=== PATIENT | male | born 1950 | race Caucasian/White ===

== ENCOUNTER → 2023-06-17 13:39 | Outpatient (REF) | payer MEDICARE, SELFPAY | LOC: HWRAD 13:39 | PROVIDERS: ATTENDING PHYSICIAN Internal Medicine | DX: I48.0 Paroxysmal atrial fibrillation (principal); I65.23 Occlusion and stenosis of bilateral carotid arteries | CPT/HCPCS: 93880 ==

== ENCOUNTER 2023-06-21 04:09 | Inpatient (IN) | payer MEDICARE, SELFPAY ==
[2023-06-20 20:07] VITALS: BP 170/106
[2023-06-20 20:26] LABS: % Basophils 0.9 % (0-2); % Eosinophils 1.6 % (0-6); % Immature Granulocytes 0.3 % (0-0.5); % Lymphocytes 39.8 % (20.5-51.1); % Monocytes 11.3 % (1.7-9.3); % Neutrophils 46.1 % (42.2-75.2); Absolute Basophils 0.1 10^3/uL (0-0.2); Absolute Eosinophils 0.1 10^3/uL (0-0.7); Absolute Lymphocytes 3.1 10^3/uL (1.2-3.4); Absolute Monocytes 0.9 10^3/uL (0.1-0.6); Absolute Neutrophils 3.5 10^3/uL (1.4-6.5); Hematocrit 41.7 % (39.0-52.0); Hemoglobin 14.5 g/dL (13.0-18.0); Mean Corp Hgb Conc. 34.8 g/dL (33.0-37.0); Mean Corpuscular Hgb 30.1 pg (27.0-31.0); Mean Corpuscular Volume 86.5 fL (80.0-94.0); Mean Platelet Volume 10.6 fL (7.4-10.4); Nucleated Red Blood Cells % 0 % (-); Platelet Count 223 10^3/uL (130-400); Red Blood Cell Count 4.82 10^6/uL (4.70-6.10); Red Cell Dist. Width 13.6 % (11.5-14.5); White Blood Cell Count 7.7 10^3/uL (4.8-10.8)
[2023-06-20 20:43] LABS: ALT (SGPT) 15 U/L (0-50); AST (SGOT) 25 U/L (17-59); Albumin 4.3 g/dl (3.5-5.0); Alkaline Phosphatase 73 U/L (38-126); Blood Urea Nitrogen 24 mg/dl (9-20); Calcium 9.3 mg/dl (8.4-10.2); Carbon Dioxide 29 mmol/L (22-30); Chloride 102 mmol/L (98-107); Glucose 118 mg/dl (70-99); Sodium 135 mmol/L (135-145); Total Bilirubin 0.5 mg/dl (0.2-1.3); Total Protein 6.8 g/dl (6.3-8.2); eGFR > 60.00
[2023-06-21] VITALS (11 sets, daily range): BP systolic 93–154; BP diastolic 56–101; BMI 19.2
[2023-06-21] MEDS: CARDIZEM 17 MG IV (00:47)
[2023-06-21] MEDS: CARDIZEM 125 IV (00:47)
--- NOTE | 2023-06-21 00:49 | ED.GENMED ---
History of Present Illness
<CHRIS Rodarte - Last Filed: 06/21/23 01:05>
General
Chief Complaint: Cardiac Symptoms
Source: patient and significant other
Exam Limitations: none
Time Seen by Provider: 06/21/23 00:17
Travel History
Have you had any contact with someone who has COVID-19?: No
Do you have any symptoms of coronavirus? Fever > 100 degrees, chills, cough, shortness of breath, sore throat, loss of taste or smell, muscle aches, or headache?: No
History of Present Illness
History of Present Illness:
This is a 73 year old male with history of HTN who presents to ER w/ c/o heart palpitations x1 day. He states he was at his primary care 4-5x for his annual physical where he was told he was in afib. He was started on Eliquis 5mg BID. Patient take
Diltazem 360mg daily (HTN) which his PCP recently increases his dosage during last visit. 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 He has been checking his heart rate/rhythm through a portable ECG that says rate controlled afib almost daily.
He states today he began to feel heart palpitations with MURILLO this afternoon which prompted him to come to the ER. Him and his go on walks daily and she reports he frequently stops to catch his breath. He also admits to recent mild fatigue. He
denies chest pain, headache, abdominal pain, or chest pressure.
Review of Systems
<CHRIS Rodarte - Last Filed: 06/21/23 01:05>
Review of Systems
Allergies reviewed?: Yes
All Other Systems: Not applicable
Constitutional: Reports fatigue
EENT: Reports no symptoms
Respiratory: Reports other (MURILLO)
Cardiac: Reports palpitations
ABD/GI: Reports no symptoms
: Reports no symptoms
Musculoskeletal: Reports no symptoms
Skin: Reports no symptoms
Neurological: Reports no symptoms
Endocrine: Reports no symptoms
Hematologic/Lymphatic: Reports no symptoms
Psychiatric: Reports no symptoms
Phy Exam
<CHRIS Rodarte - Last Filed: 06/21/23 01:05>
General Physical Exam
General Presentation: well appearing and no apparent distress
General Skin: warm and dry
General Habitus: normal
General Mental: alert
General Hydration: appears well hydrated
ENT Exam
ENT Exam: EOMI, pharynx normal, neck supple and normocephalic
Eye Exam
Eye Exam: PERRL, cornea clear and conjunctiva normal
Cardiovascular Exam
Cardiovascular Exam: no edema, no murmur, normal peripheral pulses and irregularly irregular
Pulmonary Exam
Pulmonary Exam: lungs clear, no respiratory distress, no rales, no crackles, no rhonchi, no stridor, no wheezing and no cough
Gastrointestinal Exam
Gastrointestinal Exam: normal bowel sounds, non tender, soft, no organomegaly, no pulsatile mass and non distended
Neurological Exam
Neurological Exam: alert, oriented x3, no motor deficits and speech normal
Musculoskeletal Exam
Musculoskeletal Exam: full ROM and no edema
Skin Exam
Skin Exam: normal color, warm/dry, no rash and no petechia
Psychiatric Exam
Psychiatric Exam: normal mood/affect
Scores
<CHRIS Rodarte - Last Filed: 06/21/23 01:05>
Heart Failure Risk
Heart Failure Risk Score: Not Applicable
Heart Score for Chest Pain Patients
STEMI patient?: Not applicable
Withdrawal Assessment of Alcohol
Withdrawal Assessment Completed?: Not applicable
Course
<CHRIS Rodarte - Last Filed: 06/21/23 01:05>
Orders/Labs/Results
Orders:
Orders
06/20/23 20:07
Electrocardiogram (*1) Urgent
Reason for Study: Atrial Fibrillation
EKG- Treatment ONCE
06/20/23 20:21
CMP [Comprehensive Metabolic Panel] Urgent
Complete Blood Count/With Diff Urgent
Free T4 Urgent
NT-proBNP Urgent
Comment: ADD ON/RUN ON SERUM
TSH Reflex To Free T4 Urgent
06/21/23 00:32
Add On- LAB Urgent
Tests Added?: BNP, TSH w reflex to Free T-4
06/21/23 00:34
CR Chest - 2 Views Urgent
Comment:
Reason For Exam: MURILLO, palpitations, new onset afib
06/21/23 00:42
Diltiazem 125 mg/125 ml Nss [Cardizem] 125 mg in 125 ml IV NOW
Initial dose in mg/hr, then titrate:: 10
Titrate to keep:: Heart rate 80-100 bpm
Titrate by mg/hr:: 5 mg/hr
Frequency of titrations (minutes):: 15
Maximum dose in mg/hr:: 15
Diltiazem HCl [Cardizem] 17 mg IV NOW STA
06/21/23 01:19
Apixaban [Eliquis] 5 mg PO NOW STA
Abnormal Lab Results
06/20/23
20:21
MPV 10.6 H fL
(7.4-10.4)
Absolute Monos (auto) 0.9 H 10^3/uL
(0.1-0.6)
Monocytes % 11.3 H %
(1.7-9.3)
BUN 24 H mg/dl
(9-20)
Glucose 118 H mg/dl
(70-99)
TSH (Reflex) 4.74 H uIU/ml
(0.47-4.68)
Free T4 0.66 L ng/dl
(0.78-2.19)
06/20/23 20:21
06/20/23 20:21
Vital Signs
Initial and Last Documented VS:
Initial Vital Signs
Temp Pulse Resp BP Pulse Ox
98 F 70 20 170/106 98
06/20/23 20:07 06/20/23 20:07 06/20/23 20:07 06/20/23 20:07 06/20/23 20:07
Last Documented Vital Signs
Temp Pulse Resp BP Pulse Ox
98 F 79 19 141/99 98
06/20/23 20:07 06/21/23 03:00 06/21/23 03:00 06/21/23 03:00 06/21/23 03:00
<Xiomara Quintana, DO - Last Filed: 06/21/23 03:40>
Orders/Labs/Results
Orders:
Orders
06/20/23 20:07
Electrocardiogram (*1) Urgent
Reason for Study: Atrial Fibrillation
EKG- Treatment ONCE
06/20/23 20:21
CMP [Comprehensive Metabolic Panel] Urgent
Complete Blood Count/With Diff Urgent
Free T4 Urgent
NT-proBNP Urgent
Comment: ADD ON/RUN ON SERUM
TSH Reflex To Free T4 Urgent
06/21/23 00:32
Add On- LAB Urgent
Tests Added?: BNP, TSH w reflex to Free T-4
06/21/23 00:34
CR Chest - 2 Views Urgent
Comment:
Reason For Exam: MURILLO, palpitations, new onset afib
06/21/23 00:42
Diltiazem 125 mg/125 ml Nss [Cardizem] 125 mg in 125 ml IV NOW
Initial dose in mg/hr, then titrate:: 10
Titrate to keep:: Heart rate 80-100 bpm
Titrate by mg/hr:: 5 mg/hr
Frequency of titrations (minutes):: 15
Maximum dose in mg/hr:: 15
Diltiazem HCl [Cardizem] 17 mg IV NOW STA
06/21/23 01:19
Apixaban [Eliquis] 5 mg PO NOW STA
Abnormal Lab Results
06/20/23
20:21
MPV 10.6 H fL
(7.4-10.4)
Absolute Monos (auto) 0.9 H 10^3/uL
(0.1-0.6)
Monocytes % 11.3 H %
(1.7-9.3)
BUN 24 H mg/dl
(9-20)
Glucose 118 H mg/dl
(70-99)
TSH (Reflex) 4.74 H uIU/ml
(0.47-4.68)
Free T4 0.66 L ng/dl
(0.78-2.19)
06/20/23 20:21
06/20/23 20:21
Vital Signs
Initial and Last Documented VS:
Initial Vital Signs
Temp Pulse Resp BP Pulse Ox
98 F 70 20 170/106 98
06/20/23 20:07 06/20/23 20:07 06/20/23 20:07 06/20/23 20:07 06/20/23 20:07
Last Documented Vital Signs
Temp Pulse Resp BP Pulse Ox
98 F 79 19 141/99 98
06/20/23 20:07 06/21/23 03:00 06/21/23 03:00 06/21/23 03:00 06/21/23 03:00
<CHRIS Rodarte - Last Filed: 06/21/23 01:05>
MDM/Problems Addressed
Differential Diagnosis Includes:
Afib RVR, atrial flutter, PE, DC
Atrial flutter considered, however ruled out with ECG findings. PE considered due to MURILLO, however less likely due to SOB only with exertion and not tachypneic. DC considered, but patient denies chest pain or pressure. Patient is currently in afib
RVR according to ECG findings.
<Xiomara Quintana DO - Last Filed: 06/21/23 03:40>
*Radiology
Radiology exam reviewed: preliminary read by ED provider (Chest x-ray shows normal heart size, I question very minimal increased interstitial markings bilateral mid lung davidson.)
*Pulse Oximetry
Patient hypoxic: no
*EKG
Interpreted by ED Provider?: Yes
Interpretation: abnormal
Rate: tachycardiac
Rhythm: a-fib and PVC's
Dellrose: normal axis
Interval: normal QT interval
QRS Pattern: right bundle branch block
Ischemia: non-specific ST changes
*Sales And Operations Trainee Interpretation
Rate: tachycardiac
Interpretation: abnormal
Rhythm: a-fib
*Critical Care Note
Total Time (30-74mins, 75-104mins- exclusive of procedures): Not Applicable
ED Attending Note
<CHRIS Rodarte - Last Filed: 06/21/23 01:05>
-
Portions of this chart may have been created with voice recognition software.� Occasional wrong word or��sound alike� substitutions may have occurred due to the inherent limitations of voice recognition software.
<Xiomara Quintana DO - Last Filed: 06/21/23 03:40>
ED Attending Note
Patient seen and examined by attending physician: Yes
I performed the substantive portion of visit, reviewed & personally made and approve the management plan that is documented in note by myself or JUANIS.: Yes
I performed a history and physical exam of patient and discussed management with resident, I reviewed resident's note and agree with documented findings and plan of care.: Yes
ED Attending Note:
This is a 73-year-old gentleman with history of hypertension has been maintained on Cardizem CD for the past year and a half.
During a routine exam with PCP 1 month ago he was noted to have irregularly irregular heartbeat concerning for atrial fibrillation. EKG during that office visit showed sinus bradycardia however PCP concern for paroxysmal intermittent atrial
fibrillation and patient was started on Eliquis 5 mg twice daily since May 05 and Cardizem dose was increased to 360 mg daily.
Patient has an initial visit with Dr. Geronimo next week.
He has been monitoring his heart rhythm on a daily basis with a fingertip Rhythm monitor which has been showing A-fib on a daily basis with controlled ventricular response in the 70s to 80s until today when he developed dyspnea on exertion while
walking his normal morning walk with his along with onset of palpitations feeling that his heart was beating rapidly.
Heart rhythm monitor continues to show A-fib with elevated heart rate at 120-130.
He denies chest pain, denies dizziness nor lightheadedness. He does however admit to moderate fatigue over the past week or 2 which has worsened today. Appetite has been good. No change in weight. He denies leg pain or swelling.
Patient states he has not taken his evening Eliquis nor his evening diltiazem. Other than this has been compliant with medications.
GENERAL: Alert , in no apparent distress. 73-year-old gentleman appears his stated age, bright and alert, pleasant, appears in no acute distress. is accompanying.
EYE: pupils equal and reactive
NECK: Supple, no significant adenopathy.
ENT: o/p clr, mmm.
CARDIAC: Irregularly irregular, tachycardic
LUNGS: Clear breath sounds bilaterally, no acute respiratory distress
ABDOMEN: Soft, without focal tenderness, no r/g, no cvat
NEUROLOGICAL: Alert and oriented, no focal neuro deficits
SKIN: Warm and dry, skin intact.
MUSCULOSKELETAL: No edema, well perfused.
PSYCH: Normal and appropriate interaction.
EKG shows atrial fibrillation with rapid ventricular response. Right bundle branch block. Occasional unifocal PVCs.
He remains hemodynamically stable.
At this point is unclear if patient has had persistent A-fib over the past month or perhaps even longer as he was asymptomatic during visit with PCP May 05 when A-fib was discovered on physical exam.
Throughout the past month however ventricular response has been controlled until today along with dyspnea on exertion, moderate fatigue concerning for an element of CHF versus progressive symptomatic A-fib.
As it is unclear as to when A-fib began he is not a candidate for cardioversion in the ED.
Labs thus far unremarkable. Will check BNP, TSH as well as chest x-ray.
Will give his evening dose of Eliquis and will initiate IV Cardizem bolus and drip for rate control.
06/21/2023 03:23 AM
With IV Cardizem initiated ventricular response has improved to the 80s and patient reports no further palpitations.
BNP very mildly elevated at 450. Concerning for early/mild CHF.
There is significant concern for progression of symptomatic A-fib, progression of CHF thus we will plan to continue IV Cardizem, admit to hospitalist service and will plan for cardiology consult.
Discharge Plan
Departure
Patient Disposition: Admit
Date of Disposition: 06/21/23
Time of Disposition: 03:25
Admit to: Telemetry
Admit to doctor: Rach
Presentation/result/management discussed w/ accepting MD/DO: Hospitalist
Discharge Problem:
symptomatic atrial fibrillation, Atrial fibrillation with rapid ventricular response, mild acute CHF
Referrals:
Jerome Lundberg MD [Family Provider] -
Interventions
Interventions:
*Risk Screen - Suicide Last Done: 06/20/23 20:07
*General Assessment Last Done: 06/20/23 22:30
*Neglect/Abuse Screening Last Done: 06/20/23 20:07
ED- Fall Risk Assessment Last Done: 06/20/23 22:30
*ED COVID-19 Vaccine History Last Done: 06/21/23 02:52
ED- Pulmonary Assessment Last Done: 06/20/23 22:30
ED- Cardiac Assessment Last Done: 06/20/23 22:30
Discharge Date and Time
Print Language: ITALIAN
[2023-06-21] MEDS: ELIQUIS 5 MG PO ×3 (01:23→19:36)
[2023-06-21 01:33] LABS: NT-proBNP 450 pg/ml
[2023-06-21 01:59] LABS: TSH Reflex To Free T4 4.74 uIU/ml (0.47-4.68)
[2023-06-21 02:25] LABS: Free T4 0.66 ng/dl (0.78-2.19)
--- NOTE | 2023-06-21 03:45 | HPS.HSE ---
Family Physician
-
Family Physician: Jerome Lundberg
Chief Complaint
-
palpitations
History of Present Illness
73 y/o M hx of HTN, Afib presents to ER with heart palpitations x 1 days. Patient was recently seen by PCP 1 month ago and found to be in irregular heart-beart. EKG showed sinus bradycardia but due to concern of parox A. Fib was started on Eliquis
and Cardizem was increased to 360mg. He was due to see Cardiology next week.
Patient is monitoring his heart rhythm with an external device and was shown to be in Afib daily with stable rates until today he developed dyspnea with exertion while walking with spouse. He felt palpitations at that time. no chest pain.
In ER he was found to have AFib in 120s - started on IV Cardizem drip.
Medical History
Past Medical History
Past Medical History: Reports Other (HTN, Afib)
Past Surgical History: Reports None
Social History
Tobacco: Non-smoker
Alcohol: None
Drug: None
Personal:
Living: With Family
Family History
Family History: Not pertinent
Allergies / Home Medications
Allergies reflects when Allergies were last updated in [facility].
Home Medications with original date entered in [facility]
Allergy/Medication List:
Allergies
Allergy/AdvReac Type Severity Reaction Status Date / Time
No Known Allergies Allergy Verified 06/20/23 20:10
Home Medications
Glaucoma Eye Drop 1 drp BOTH EYES HS 06/21/23
apixaban 5 mg tablet (Eliquis) 5 mg PO BID 06/21/23
clonazepam 0.25 mg disintegrating tablet 0.25 mg PO BID 06/21/23
diltiazem HCl 360 mg tablet,extended release 24 hr 360 mg PO DAILY 06/21/23
sertraline 50 mg tablet 50 mg PO DAILY 06/21/23
trazodone 50 mg tablet 50 mg PO HS 06/21/23
If Other, explain: med rec not completed
Review of Systems
-
A 12 point ROS was completed and negative except as noted: Yes
Physical Exam
Vital Signs
Vital Signs
Temp Pulse Resp BP Pulse Ox
98 F 79 19 141/99 98
06/20/23 20:07 06/21/23 03:00 06/21/23 03:00 06/21/23 03:00 06/21/23 03:00
Physical Exam
General: No Apparent Distress
HEENT: NormoCephalic and Anicteric
Respiratory: Clear
Cardiac: Irregular Rhythm and Tachycardia
Neuro: AO x 3
Psych: Calm
Laboratory Results
-
06/20/23 20:21
06/20/23 20:21
Laboratory Results
Total Bilirubin 0.5 mg/dl (0.2-1.3) 06/20/23 20:21
AST 25 U/L (17-59) 06/20/23 20:21
ALT 15 U/L (0-50) 06/20/23 20:21
Alkaline Phosphatase 73 U/L (38-126) 06/20/23 20:21
Data Reviewed
-
Lab Data: Labs Reviewed by me
Impression/Plan
-
Assessment:
Parox A. Fib with RVR, on Eliquis
Essential HTN
Anxiety/Depression
Slightly abnormal TFTs
Plan:
admit IVU
monitor HRs/BPs on Cardizem drip
Empirically keep NPO pending Cardiology review; may be candidate for RODY/CV. 2D Echo ordered.
with no clinical evidence of hypothyroidism; would repeat TFTs in 4-6 weeks
DVT ppx: Eliquis
Code: Full
[2023-06-21] MEDS: KLONOPIN 0.25 MG PO ×3 (03:59→19:36)
[2023-06-21 07:59] LABS: Hematocrit 46.3 % (39.0-52.0); Hemoglobin 15.7 g/dL (13.0-18.0); Mean Corp Hgb Conc. 33.9 g/dL (33.0-37.0); Mean Corpuscular Volume 88.5 fL (80.0-94.0); Mean Platelet Volume 10.9 fL (7.4-10.4); Platelet Count 224 10^3/uL (130-400); Red Blood Cell Count 5.23 10^6/uL (4.70-6.10); Red Cell Dist. Width 13.6 % (11.5-14.5); White Blood Cell Count 7.4 10^3/uL (4.8-10.8)
[2023-06-21 08:33] LABS: Blood Urea Nitrogen 18 mg/dl (9-20); Calcium 9.5 mg/dl (8.4-10.2); Carbon Dioxide 28 mmol/L (22-30); Chloride 101 mmol/L (98-107); Estimated Creatinine Clearance 76 ml/min; Glucose 96 mg/dl (70-99); HDL Cholesterol 59 mg/dl; LDL Cholesterol, Calculated 88 mg/dl; Potassium 4.3 mmol/L (3.5-5.1); Sodium 136 mmol/L (135-145); Total Cholesterol 161 mg/dl (50-199); Triglyceride 73 mg/dl (10-149); Very Low Density Lipoprotein 14 mg/dl (0-30); eGFR > 60.00
[2023-06-21] MEDS: ZOLOFT 50 MG PO (08:55)
[2023-06-21 09:08] LABS: Hepatitis C Antibody Negative (Negative)
--- NOTE | 2023-06-21 10:55 | CON.CAR ---
Medical History
Allergies / Home Medications
Allergy/AdvReac Type Severity Reaction Status Date / Time
No Known Allergies Allergy Verified 06/20/23 20:10
�Medication �Instructions �Recorded �Confirmed �Type
Glaucoma Eye Drop 1 drp BOTH EYES HS 06/21/23 06/21/23 History
apixaban 5 mg tablet (Eliquis) 5 mg PO BID 06/21/23 06/21/23 History
clonazepam 0.25 mg disintegrating 0.25 mg PO BID 06/21/23 06/21/23 History
tablet
diltiazem HCl 360 mg 360 mg PO DAILY 06/21/23 06/21/23 History
tablet,extended release 24 hr
sertraline 50 mg tablet 50 mg PO DAILY 06/21/23 06/21/23 History
trazodone 50 mg tablet 50 mg PO HS 06/21/23 06/21/23 History
Physical Exam
Vital Signs
Temp Pulse Resp BP Pulse Ox
98.3 F 89 18 132/98 99
06/21/23 08:10 06/21/23 08:10 06/21/23 08:10 06/21/23 08:10 06/21/23 08:10
Lab Results
06/21/23 07:16
06/21/23 07:16
[id number] Pept 450 pg/ml 06/20/23 20:21
--- NOTE | 2023-06-21 11:12 | CM ---
Patient seen bedside, initial assessment completed. Patient resides with his in a split level home, 15 steps to enter. Patient denies DME, VN, or SNF and reports he is completely ambulatory. Patient confirms PCP Jerome Lundberg, pharmacy [facility]
in [place]. Patient confirms prescription coverage, denies food insecurities. CM will continue to follow for discharge planning needs.
Plan; home no needs likely.
--- NOTE | 2023-06-21 11:55 | CON.CAR ---
Addendum entered and electronically signed by Dewayne Caba MD 06/21/23 15:32:
Patient seen and examined in collaboration with SHOW HOST/HOSTESS; agree with below.
-Patient presenting with A-fib with RVR; has not missed any doses of Eliquis for at least the past 3 weeks.
-Patient underwent successful DCCVN today with episcopal of sinus rhythm.
-Can transition to oral rate-controlling medications.
-Continue Eliquis, uninterrupted, for at least the next 30 days.
-Outpatient ischemic evaluation (stress test).
-Continue to monitor on telemetry overnight; discharge home tomorrow morning if telemetry is stable.
-Patient would like to follow-up with Dr. Mike as outpatient to discuss atrial fibrillation ablation therapy.
Original Note:
Consultation
Consultation Request
Date/Time Consultation Requested: 06/21/2023 10:30
Date/Time Consultation Performed: 06/21/2023 11:00
Requesting Provider: Dr. Loyd
Performing Provider: ROSALINE Andrews for Dr. Caba
Reason for Consultation: Atrial fibrillaton with RVR
Medical History
-
Chief Complaint: Palpitations
History of Present Illness:
Deo Rossi is a 73-year-old male with hypertension who presented to the emergency department with a chief complaint of palpitations. He was seen by his PCP in the outpatient setting and had an irregular heartbeat in addition to palpitations.
There were concerns for paroxysmal atrial fibrillation and he was started on apixaban and diltiazem. He has been on uninterrupted apixaban for greater than 30 days. He has been using an outpatient rhythm monitoring device which has shown atrial
fibrillation with stable rates. He planned on seeing Dr. Mike for ablation evaluation. Yesterday, he developed rapid ventricular response in addition to dyspnea on exertion. He was found to be in atrial fibrillation with rates in the 120s in
the emergency department. He was started on a diltiazem drip.
Past Medical History
Past Medical History: Arrhythmias (Paroxysmal atrial fibrillation) and HTN
Social History
Tobacco: Non-Smoker
Alcohol: None
Drug: None
Personal:
Living: With Family
Family History
Family History: Reviewed & Not Pertinent (Denies early CAD and SCD.)
Allergies / Home Medications
Allergy/AdvReac Type Severity Reaction Status Date / Time
No Known Allergies Allergy Verified 06/20/23 20:10
�Medication �Instructions �Recorded �Confirmed �Type
Glaucoma Eye Drop 1 drp BOTH EYES HS 06/21/23 06/21/23 History
apixaban 5 mg tablet (Eliquis) 5 mg PO BID 06/21/23 06/21/23 History
clonazepam 0.25 mg disintegrating 0.25 mg PO BID 06/21/23 06/21/23 History
tablet
diltiazem HCl 360 mg 360 mg PO DAILY 06/21/23 06/21/23 History
tablet,extended release 24 hr
sertraline 50 mg tablet 50 mg PO DAILY 06/21/23 06/21/23 History
trazodone 50 mg tablet 50 mg PO HS 06/21/23 06/21/23 History
Review of Systems
-
History Source: Patient
All other systems: Negative unless noted
Respiratory: No Symptoms
Cardiac: Palpitations
Abdomen/GI: No Symptoms
: No Symptoms
Musculoskeletal: No Symptoms
Physical Exam
Vital Signs
Temp Pulse Resp BP Pulse Ox
98.2 F 79 18 149/97 99
06/21/23 11:36 06/21/23 11:36 06/21/23 11:36 06/21/23 11:36 06/21/23 11:36
Lab Results
06/21/23 07:16
06/21/23 07:16
Ejc-V-Jfagqkcxxee Pept 450 pg/ml 06/20/23 20:21
Physical Exam
General: Well Developed, Well Nourished, No Apparent Distress and Comfortable
HEENT: Normocephalic, Anicteric and Moist Mucous Membranes
Respiratory: Clear and Non Labored Respirations
Cardiac: S1/S2 and Irregular Rhythm; Negative Peripheral Edema
Breast: Deferred by me
GI: Soft, Non Tender, Non Distended and Normal Bowel Sounds
Rectal: Deferred by Provider
Genito-urinary: No Costovertebral Tender
Musculoskeletal: No Clubbing, No Cyanosis and No Edema
Skin: Warm and Dry
Neuro: AO x 3
Hematologic/Lymphatic: No Lymphadenopathy
Psych: Calm
Impression / Plan
-
Atrial fibrillation with right ventricular response
-Rate controlled on diltiazem drip
-Oral Anticoagulation: Apixaban 5 mg twice daily, he denies missed doses and abnormal bleeding, started greater than 30 days ago
-[id number]: score at least 2 (HTN, age 65-74)
-Long-term plan is ablation with Dr. Mike if he is a candidate
-Plan for DCCV today
Hypertension, BP above goal on diltiazem drip, follow after sinus rhythm is restored
Data Reviewed
-
EKG: Report Reviewed by me (Atrial fibrillation with RVR, PVCs, rate 128)
Labs: Labs Reviewed by me
Old Records: Reviewed
[2023-06-21] MEDS: CARDIZEM CD 360 MG PO (15:52)
[2023-06-21] MEDS: TOPROL XL 25 MG PO (15:52)
--- NOTE | 2023-06-21 16:44 | W.PN.UPDATE ---
Update Note
Progress Note Update
Note for service provided at 1100
Nonbillable note
Chart/lab/images reviewed
Patient currently on Cardizem drip
Cardiology planning for possible cardioversion
Patient not voicing any complaints of ongoing chest pain. Does have mild palpitation. No dizziness.
[2023-06-21] MEDS: DESYREL 50 MG PO (21:28)
[2023-06-22 03:21] VITALS: BP 114/72
[2023-06-22 07:24] VITALS: BP 116/79
[2023-06-22 07:37] LABS: Hematocrit 45.2 % (39.0-52.0); Hemoglobin 15.4 g/dL (13.0-18.0); Mean Corp Hgb Conc. 34.1 g/dL (33.0-37.0); Mean Corpuscular Hgb 30.3 pg (27.0-31.0); Mean Corpuscular Volume 88.8 fL (80.0-94.0); Mean Platelet Volume 10.8 fL (7.4-10.4); Platelet Count 218 10^3/uL (130-400); Red Blood Cell Count 5.09 10^6/uL (4.70-6.10); Red Cell Dist. Width 13.5 % (11.5-14.5); White Blood Cell Count 6.6 10^3/uL (4.8-10.8)
[2023-06-22] MEDS: TOPROL XL 25 MG PO (08:07)
[2023-06-22] MEDS: CARDIZEM CD 360 MG PO (08:07)
[2023-06-22] MEDS: ZOLOFT 50 MG PO (08:07)
[2023-06-22] MEDS: ELIQUIS 5 MG PO (08:07)
[2023-06-22] MEDS: KLONOPIN 0.25 MG PO (08:07)
--- NOTE | 2023-06-22 08:48 | W.PN.HOSP.TC ---
Today's Communication/Plan
-
d/c home
Assessment / Plan
Assessment / Plan
Assessment:
Parox A. Fib with RVR, on Eliquis
Essential HTN
Anxiety/Depression
Slightly abnormal TFTs
Plan:
Patient underwent successful cardioversion yesterday
Now back in afib
cardiology started on toprol xl 25mg/d on top of home dose dilt xr 360mg/d
denies chest pain/dizziness overnight
patient will f/u with EP cardio in one week and being considered for ablation
with no clinical evidence of hypothyroidism; need repeat TFTs in 4-6 weeks
DVT ppx: Eliquis
Code: Full
More than 30 minutes spent in discharge including
Final examination of the patient
Summarizing hospital stay
Instructions for continuing care to all relevant caregivers
Preparation of discharge records, prescriptions, and referral forms
Total time spent (in minutes): 38 mins
Anticipated Discharge: Today
Subjective/Interval History
-
Date of Service: June 22, 2023
HR better controlled, remains in afib
no palpitation/dizziness/chest pain
Objective Data
-
Labs:
Laboratory Results
06/22/23
07:03
WBC 6.6
Hgb 15.4
Hct 45.2
Plt Count 218
Sodium Pending
Potassium Pending
Chloride Pending
Carbon Dioxide Pending
BUN Pending
Creatinine Pending
Glucose Pending
Calcium Pending
Vital Signs:
Vital Signs
Temp Pulse Resp BP Pulse Ox
98.6 F 92 18 116/79 96
06/22/23 07:24 06/22/23 08:07 06/22/23 07:24 06/22/23 08:07 06/22/23 07:24
I&O
06/21/23 06/22/23 06/23/23
06:59 06:59 06:59
Intake Total 480 / 480
Output Total 400 / 400
Balance 80 / 80
Review of Systems
-
Respiratory: Reports No Symptoms
Cardiac: Reports No Symptoms
Abdomen/GI: Reports No Symptoms
Physical Exam
-
General: No Apparent Distress and Comfortable
HEENT: Negative Oxygen
Respiratory: Clear to Auscultation
Cardiac: S1/S2 and Irregular Rhythm; Negative Murmur or Tachycardic
GI: Soft, Nontender and Nondistended
Musculoskeletal: No Edema
Neuro: Awake, Alert, Oriented, No Motor Deficits and Nonfocal/Grossly Intact
Psych: Calm
--- NOTE | 2023-06-22 09:01 | W.PN.CD ---
Today's Communication / Plan
-
- Discharge home with plan for Ablation consult
Impression / Plan
-
Atrial fibrillation with right ventricular response
- s/p RODY/DCCV - sinus rhthm lasted < 12 hours
- Converted back to AF before midnight
- Plan for rate controlled on diltiazem 360 and Metoprolol 25 until ablation
- Oral Anticoagulation: Apixaban 5 mg twice daily
- [id number]: score at least 2 (HTN, age 65-74)
- OK to discharge home on Diltiazem / Toprol
Hypertension,
-BP is goo don Diltiazem / Metoprolol.
Physical Exam
Vital Signs/Labs
Vital Signs
Temp Pulse Resp BP Pulse Ox
98.6 F 92 18 116/79 96
06/22/23 07:24 06/22/23 08:07 06/22/23 07:24 06/22/23 08:07 06/22/23 07:24
06/21/23 06/22/23 06/23/23
06:59 06:59 06:59
Actual Weight 64.319 kg
06/22/23 07:03
Triglycerides 73 mg/dl (10-149) 06/21/23 07:16
LDL Cholesterol, Calc 88 mg/dl 06/21/23 07:16
VLDL Cholesterol, Calc 14 mg/dl (0-30) 06/21/23 07:16
HDL Cholesterol 59 mg/dl 06/21/23 07:16
Free T4 0.66 ng/dl (0.78-2.19) L 06/20/23 20:21
06/20/23
20:21
[id number] Pept 450
Physical Exam
Constitutional: No acute distress and Comfortable
EENT: Anicteric and Moist mucous membranes
Cardiovascular: Rhythm & rate is regular, Pedal edema is absent, JVD pressure is normal and Rhythm/rate is irregular
Respiratory: Respiratory effort normal, Lungs clear to auscul. and Wheeze Absent
GI: Soft, Non tender and Normal bowel sounds
Neuro/Psych: Alert, Oriented and AO x 3
Data Reviewed
-
Date of Service: June 22, 2023
Medical Decision Making: Reviewed Test Results, Independent Historian Assessment and Test Interpretation
EKG: Tracing Personally Visualized and interpreted
Echo: Report Reviewed by me
Labs: Labs Reviewed by me
Old Records: Reviewed
[2023-06-22 09:19] LABS: Blood Urea Nitrogen 26 mg/dl (9-20); Calcium 9.8 mg/dl (8.4-10.2); Carbon Dioxide 25 mmol/L (22-30); Chloride 103 mmol/L (98-107); Estimated Creatinine Clearance 67 ml/min; Glucose 95 mg/dl (70-99); Potassium 4.4 mmol/L (3.5-5.1); Sodium 136 mmol/L (135-145); eGFR > 60.00
[2023-06-22 10:01] VITALS: BP 118/76
--- NOTE | 2023-06-22 11:08 | CM ---
CM noted dc order
No dc needs noted
IMM issued 06/19 and remains valid
Discharge Disposition- home no needs
--- NOTE | 2023-06-23 07:29 | W.DCSUMMARY ---
Discharge Summary
Discharge Data
Date of Admission: 06/21/23
Date of Discharge: 06/22/23
-
Pending Results: No
Hospital Course
Discharging Physician : Dr Duglas De La Garza
Disposition : To home
Primary care physician : Dr Jerome Lundberg
Principal Discharge diagnosis :
Paroxysmal atrial fibrillation with rapid ventricular rate
Chronic Discharge diagnosis :
Essential hypertension
Anxiety/depression
Hospital Course :
Patient is a 73-year-old male with mentioned past medical history came to ER with new onset of palpitation. Patient have recent diagnosis of A-fib and was started on oral Cardizem and Eliquis with plan for patient to follow-up in cardiology in
office. Unfortunately patient started to having palpitation and some exertional dyspnea and came to ER for further evaluation. In ER patient noted to be in rapid ventricular rate and required to be started on Cardizem drip. Cardiology did an
echocardiogram showing EF of 55%. Cardiology discussed plan for elective cardioversion and had a successful cardioversion. Unfortunately patient converted back to A-fib during the hospital stay. Patient was started on added metoprolol at this
point. Patient to follow with EP cardiology in office for follow-up further discussion of ablation therapy.
Important imaging findings :
None
Procedure findings :
None
Discharge Plan
-
Patient Disposition: Home (Routine Discharge)
Discharge Diagnosis/Procedures: Parox afib/rvr
Condition: Fair
Diet: Regular and Other diet
Additional Diets: Avoid caffeinated drinks and alcohol
Activity: As tolerated
Driving Restrictions: As prior to admission
Bathing Restrictions: OK to Shower
Referrals:
Flaco Mike MD [Active] - 07/22/23 9:00 am (Ablation Consultation)
Constance Ramirez CRNP [Specified Professional Personl] - 06/29/23 10:00 am (Atrial fibrillation follow-up)
Jerome Lundberg MD [Family Provider] - in one week
Prescriptions:
New
metoprolol succinate 25 mg Tablet Extended Release 24 Hr
25 mg PO DAILY Qty: 30 2RF
Continued
trazodone 50 mg Tablet
50 mg PO HS
sertraline 50 mg Tablet
50 mg PO DAILY
diltiazem HCl 360 mg Tablet Extended Release 24 Hr
360 mg PO DAILY
clonazepam 0.25 mg Tablet,Disintegrating
0.25 mg PO BID
Eliquis 5 mg Tablet
5 mg PO BID
No Action
travoprost 0.004 % drops
1 drp BOTH EYES HS
finasteride 1 mg tablet
1 mg PO DAILY
Discharge Orders:
Discharge Patient (As Directed); Ordered 06/22/23
Ordered By: Duglas De La Garza
Discharge Date and Time
Discharge Date/Time: 06/22/23 11:05
Print Language: [id number]
== END 2023-06-22 11:05 | disposition home or self-care (01) | DRG 310 ==
LOC: 4 EAST ACU 04:09
PROVIDERS: Student in an Organized Health Care Education/Training Program; ADMITTING PHYSICIAN Internal Medicine; ATTENDING PHYSICIAN Hospitalist; CONSULT PHYSICIAN Internal Medicine; EMERGENCY PHYSICIAN Emergency Medicine; FAMILY PHYSICIAN Internal Medicine
PROC: 5A2204Z Restoration of Cardiac Rhythm, Single (ICD-10-PCS; 2023-06-21)
DX: I48.0 Paroxysmal atrial fibrillation (principal); I50.9 Heart failure, unspecified; I11.0 Hypertensive heart disease with heart failure; I45.10 Unspecified right bundle-branch block; F32.A Depression, unspecified; F41.9 Anxiety disorder, unspecified; Z79.01 Long term (current) use of anticoagulants
CPT/HCPCS: 71046; 80048; 80053; 80061; 83880; 84439; 84443; 85025; 85027; 86803; 92960; 93005; 93306; 96374; 99285

== ENCOUNTER → 2023-06-29 10:05 | Outpatient (REF) | payer MEDICARE, SELFPAY | LOC: SDSPAT 10:05 | PROVIDERS: ATTENDING PHYSICIAN Internal Medicine Cardiovascular Disease; FAMILY PHYSICIAN Internal Medicine | DX: Z01.818 Encounter for other preprocedural examination (principal); I48.19 Other persistent atrial fibrillation | CPT/HCPCS: 36415; 86850; 86900; 86901 ==

== ENCOUNTER 2023-07-05 05:55 | Day surgery (SDC) | payer MEDICARE, SELFPAY ==
[2023-06-29 13:34] VITALS: BMI 19.7
[2023-07-05] VITALS (17 sets, daily range): BP systolic 117–133; BP diastolic 72–85; BMI 19.3
[2023-07-05 09:06] LABS: ACT-LR - POC 366 Seconds (116-155)
--- NOTE | 2023-07-05 12:28 | ITS.CL.ABL ---
Alteration Manager - Ablation
Ablation
Procedure Report:
AFIB ablation:
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
Date of Procedure:
07/05/2023
Indications:
Symptomatic atrial fibrillation
Pre-Operative Diagnosis:
Persistent Atrial fibrillation
Post-Operative Diagnosis:
Persistent Atrial fibrillation
Procedure Performed:
Atrial fibrillation Redo ablation with wide area circumferential ablation (WACA) approach for pulmonary vein isolation
Atypical atrial flutter ablation with roof line formation
Additional atrial fibrillation ablation with Posterior wall isolation
Cardioversion
Performing Physician:
Flaco Mike MD
Assistants:
EP staff
Anesthesia:
See anesthesia records
Detailed Description of the Procedure:
Written informed consent was obtained from the patient after a full explanation of the risks and benefits of the procedure including the risks of sedation and anesthesia.
The patient was brought to the electrophysiology laboratory in stable condition in fasting state. Continuous electrocardiographic and hemodynamic monitoring was initiated.
The initial rhythm was atrial fibrillation.
Time out:
The procedure site was meticulously prepared with surgical scrub and allowed to dry with no pooling. Sterile draping was applied to cover the procedure site. The image intensifier was draped with sterile bag and positioned over the patient. After
infusion of local anesthetic, vascular access was obtained under ultrasound guidance and sheaths were placed over guide wire as detailed below.
Prior to the start of the procedure a surgical pause was performed with in agreement from anesthesia, EP staff with double identifier and explanation of the procedure, plan and site of the procedure stated with allergies and medications and
pertinent labs reviewed.
After infusion of local anesthetic, vascular access was obtained under ultrasound guidance and sheaths were placed over guide wire as detailed below.
Sheath and Catheter Placement:
The following catheters / sheaths were placed
Sheaths:
��������������� Agilis sheath in right femoral vein upgraded from 8Fr in right femoral vein
��������������� 9Fr in right femoral vein
Catheters:
������������� [employer] Thermacool STSF bidirectional (D/F) - at locations of HRA, RV, LA and LV.
������������� Pentaray catheter � at locations of RA� and LA
������������� ICE catheter - at locations of RA, SVC, and RV.
Intracardiac ECHO:
An 8-[place] AcuNav intracardiac ECHO (ICE) probe was advanced through the 9-[place] sheath in the femoral vein into the right atrium under fluoroscopic and ICE ultrasound image guidance and a baseline ECHO study was performed. The left atrial size
was enlarged. There was trace tricuspid regurgitation. The aortic valve was normal. There was borderline normal left ventricular size and function. There was small pericardial effusion. The SUZY has low velocities noted on Doppler in atrial
fibrillation and in sinus. There was significant spontaneous contrast noted. All the four veins were identified and good flow noted.
During the procedure, ICE was used for monitoring of complications, guidance of trans-septal puncture, monitor the catheter position and tracking ablation lesions. No change in the pericardial space noted throughout the procedure.
Trans-septal Puncture:
Heparin was initiated and infused to maintain appropriate ACT.
A J-tipped guidewire was advanced through the 8-[place] sheath in the right femoral vein into the superior vena cava under fluoroscopic and ICE guidance. The 8-[place] sheath was exchanged for an Agilis sheath which was advanced into the superior vena
cava. A BRK needle was advanced until the tip was slightly behind the tip of the dilator inside the Agilis. The apparatus was withdrawn until it was in contact with the fossa ovalis. The position was adjusted based on fluoroscopy and ultrasound
images from ICE. Under fluoroscopic, hemodynamic and ICE ultrasound guidance, left atrium was cannulated by advancing the needle. Once atrial septum was cannulated, the needle was pulled back and a BMW guide wire was advanced through the needle into
the left atrium. The guide wire was advanced into the left superior pulmonary vein. Both the sheath and the dilator was advanced into the left atrium. The dilator with the needle was withdrawn. Blood was aspirated from the Agilis sheath and arterial
blood confirmed. The sheath was flushed. Saline injection noted into the left atrium on ICE. The pressure waveform was checked ad LA pressure measured. The penta-ray catheter was advanced in the Agilis sheath into the left pulmonary vein.
The 3-D mapping was done and then the penta-ray was switched to ablation catheter and back to penta-ray as needed.
3D Electroanatomic Mapping:
Using the Pentaray catheter advanced through Agilis sheath into the left atrium, an electroanatomic map (EAM) of the left atrium was created using [employer] Carto mapping system. The map was used for localization of catheter position and
tacking of ablation lesions. The EAM of the left atrium showed 4 pulmonary veins with all four electrically connected to the body the LA. It showed extensive low voltage areas in atrial fibrillation on the posterior wall of the LA in atrial
fibrillation but once sinus rhythm achieved, there was only moderate scar with only scattered scar in the pposterior wall and the floor of the LA. The LA was dilated in size
Following the EAM, preparations were made for ablation.
Phrenic nerve stimulation attempt:
The right sided pulmonary veins were identified and the anterior antrum and the deep anterior locations of the PVs were check with high output stimulation that showed no phrenic nerve capture in any of the potential ablation areas.
The safe areas were marked and a design line was created through the safe areas of tested antral myocardium for ablation lesions.
Ablation:
Ablation # 1: Pulmonary vein Isolation:
Radiofrequency ablation was performed using an open irrigation, force-sensing 3.5mm radiofrequency ablation catheter (Thermocool STSF) by completing the circumferential lesions around the left and right pulmonary veins achieving pulmonary vein
isolation.
All the ablation lesions were guided by the [employer] SURPOINT module with the posterior lesions were limited to 45 waller for SURPOINT lesion index goal of 400 and anterior wall lesions were limited to SURPOINT index goal of 450.
The esophagus was noted to be on the left side of the LA near the PV antra based on the locations of the esophageal temperature probe. Ablation was stopped for any temperature increase of 0.1 degree C. Max esophageal temperature was 37.7C.
Cardioversion:
Due to the persistence of atrial fibrillation following the PVI, the decision was made to proceed with a cardioversion followed by the remainder of the ablation as detailed below. Therefore, a 200J shock was delivered to the chest via Zoll patches
placed with yazidism of sinus rhythm. The patient remained hemodynamically stable throughout.
The CS was paced with the ablator and no cardiac pause noted. �There was severe sinus bradycardia noted and the LA was paced.
Ablation # 2: Roof line Formation:
There was a clear channel of electrical activity left in the posterior wall with multiple CFAE and AF areas on the roof and ablation in that area increased the risk of atrial flutter and decision was made to create a roof line to block a slow
conduction. A set of radiofrequency ablations were placed on the roof line connecting the left superior pulmonary vein ablation lesions to the right superior pulmonary vein lesions rings.
Ablation # 3: Posterior wall isolation with the Box lesions set Formation:
There was a significant fractionation seen in the posterior wall and LA AF foci along with CFAE made it clear as the posterior wall is critical in maintaining the atrial fibrillation and the decision was made to isolate the posterior wall by
creating a �Box� lesions.
A set of radiofrequency ablations were placed on the floor line connecting the left inferior pulmonary vein ablation lesions to the right inferior pulmonary vein lesions rings.
The penta-ray in the posterior wall showed entrance block and the pacing from the posterior wall showed local capture with no exit from the box lesions confirming the exit block.
EP study and Confirmation of the PVI and bidirectional block:
Following achievement of entrance block at the pulmonary veins, pacing from the pentaray catheter in SUZY and the pentaray in each of the four veins at 10 milliamps for 2 milliseconds showed entrance and exit block. All PVI were rechecked at the end
of the case and remained isolated with dissociated and local capture with pacing. Entrance and exit block were demonstrated in all veins.
The LA was mapped with Carto EAM in sinus rhythm confirming the line of block at the ablation lesions lines.
Sinus Node Function: The sinus node functions are within acceptable normal range.
The AV chapo functions are deemed within normal range.
Arrhythmia Induction:
No sustained arrhythmia was induced at the end of the study.� Sinus bradycardia noted and Dopamine was started while recovering from anesthesia and weaned off later.
Procedure End
ICE study was done again that showed no epicardial accumulation. No complications noted.
Following the completion of the EP study, catheters were removed. Protamine 40 mg was given at the end of the procedure and ACT was checked repeatedly. The sheaths were removed and hemostasis achieved with VASCADE and manual compression after
acceptable ACT is achieved.
Left atrial Pressure:
Pre-Procedure: Mean LA pressure was 9mmHg
Post-Procedure: Mean LA pressure was 9mmHg
Post-Procedure: Mean RA pressure was 5mmHg
Estimated Blood loss:
<10 cc
Specimens Removed:
None.
Implants / Devices:
None
Urine output:
None
Packs / Drains/ Tubes:
None
Instrument / Sponge Count Correct:
Yes
Complications of the Procedure:
None
Condition of Patient at Time of Transfer:
Hemodynamically stable with no neurological or vascular compromise.
Summary:
Successful atrial fibrillation ablation with circumferential bidirectional line of block at pulmonary vein antra (Pulmonary vein isolation), Atypical flutter ablation with roof line formation, Posterior wall isolation
--- NOTE | 2023-07-05 12:30 | PTCARENOTE ---
approx 12 noon after ambulating and voiding in bathroom pt developed a hematoma. approx 3 x 3inches. pressure held for 20min per motor boss Jill marie. hematoma now pressed out w some apparent ecchomosis. Dr Mike in to visualize groin site and speak w
pt and .
--- NOTE | 2023-07-05 14:14 | W.PN.UPDATE ---
Update Note
Progress Note Update
73 yo WM s/p PVI, Aflutter ablation (same day). He feels good, no cp, sob, desire diet, voiding, EKG SR RBBB, R fem site had small HT after getting oob, manual pressure applied, now soft with small area of ecchymosis. He will resume Eliquis tonight,
and continue diltiazem, metoprolol. We will add PPI for 2 weeks. Activity restrictions reviewed. He will f/u with [employer] in 2 weeks. He is for d/c home after 2pm.
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
Date of Procedure:
07/05/2023
Procedure Performed:
Atrial fibrillation Redo ablation with wide area circumferential ablation (WACA) approach for pulmonary vein isolation
Atypical atrial flutter ablation with roof line formation
Additional atrial fibrillation ablation with Posterior wall isolation
Cardioversion
[2023-07-07 08:14] LABS: ACT-LR - POC > 397 Seconds (116-155)
[2023-07-07 08:15] LABS: ACT-LR - POC > 397 Seconds (116-155)
== END 2023-07-05 14:21 | disposition home or self-care (01) ==
LOC: CATH 05:55
PROVIDERS: ATTENDING PHYSICIAN Internal Medicine Cardiovascular Disease; FAMILY PHYSICIAN Internal Medicine
DX: I48.19 Other persistent atrial fibrillation (principal); I48.4 Atypical atrial flutter; I10 Essential (primary) hypertension; R06.09 Other forms of dyspnea; Z79.01 Long term (current) use of anticoagulants; F41.9 Anxiety disorder, unspecified; F32.A Depression, unspecified
CPT/HCPCS: C1732; C1769; C1766; C1892; C1759; 76937; 85347; 86900; 86901; 93005; 93655; 93656; 93657; C1760

== ENCOUNTER → 2024-05-30 14:25 | Outpatient (REF) | payer MEDICARE, SELFPAY | LOC: RAD 14:25 | PROVIDERS: ATTENDING PHYSICIAN Internal Medicine | DX: G45.1 Carotid artery syndrome (hemispheric) (principal) | CPT/HCPCS: 93880 ==